=== PATIENT | female | born 1985 | race Two or more races ===

== ENCOUNTER 2020-01-08 13:04 | Observation (INO) ==
[2020-01-08 13:28] VITALS: BMI 33.5
[2020-01-08 13:41] LABS: BILIRUBIN,URINE NEGATIVE (NEGATIVE); BLOOD/HEMOGLOBIN,URINE 5+ (NEGATIVE); GLUCOSE, URINE NEGATIVE (NEGATIVE); KETONES,URINE NEGATIVE (NEGATIVE); LEUKOCYTE ESTERASE ,URINE 1+ (NEGATIVE); NITRITES,URINE NEGATIVE (NEGATIVE); PROTEIN,URINE 2+ (NEGATIVE); UROBILINOGEN,URINE NORMAL (NORMAL)
--- NOTE | 2020-01-08 13:47 | DR.PREG ---
HPI Time seen Time Seen by Provider: 01/08/20 13:43 PCP Primary Care Physician: FRANK HPI Comment HPI Comment: PATIENT IS 34YR OLD FEMALE HERE IN ER WITH LOWER ABDOMINAL PAIN AND VAGINAL BLEEDIGING. SHE IS G 4 P 1 A 2. SHE IS 15 WEEKS . PAIN IS C RAMPING WITH 6/10 PAIN RADIATING TO THE LOWER BACK. PAIN ASSOCIATED WITH VAGINAL BLEEDIG. PATIENT SAW DR. MARIE YESTERDAY PRESCRIBE MEDICATIOS FOR UTI. PAIN IS GETTING WORSE. MOVEMENT WORSEN PAIN AND LYING STILL DECREASES PAIN. NO FEVER OR DYSURIA. PAIN IS GETTING WORSE. Chief Complaint Chief Complaint Doctors Comments: LOWER ABDOMINAL PAIN WITH VAGINAL BLEEDING THAT STARTED LAST NIGHT. Chief Complaint:: PATIENT SIGNIFICANT OTHER AT BEDSIDE STATED "SHE STARTED HURTING IN HER LOWER RIGHT STOMACH LASTNIGHT AND HAS BEEN HAVING A LITTLE BIT OF BLEEDING AND IS STILL HURTING AND STILL A LITTLE BIT OF BLEEDING." COVID-19 Coronavirus risk:travel/contact w/high risk person: No Has patient experienced Coronavirus symptoms: No Nurses Notes Reviewed Nurses Notes Review: Yes Source History Provided: Patient and Significant Other Mode of Arrival Mode of Arrival: In Arms Timing Onset of Chief Complaint: 01/07/20 PMH PMH Past Medical History: No Past Surgical History: No Family History History of Family Medical Conditions: No Social History Alcohol Use: None Do you use any recreational Drugs:: No Travel Risk Coronavirus risk:travel/contact w/high risk person: No Has patient experienced Coronavirus symptoms: No Infectious screening Have you traveled outside the country in the last 6 months?: No Isolation: Standard ROS Review of Systems Constitutional: No Symptoms Reported and See HPI; negative Fever, Weakness and Fatigue Eyes: No Symptoms Reported and See HPI; negative Blurred Vision and Diplopia ENTM: No Symptoms Reported and See HPI; negative Ear Pain, Nose Discharge, Nose Congestion and Throat Pain Respiratoy: No Symptoms Reported and See HPI; negative Moist Cough, Short of Breath and Wheezing Cardiovascular: No Symptoms Reported; negative See HPI, Chest Pain, Edema and Palpitations Gastrointestinal/Abdominal: No Symptoms Reported, See HPI and Abdominal Pain; negative Constipation, Diarrhea, Nausea and Vomiting Genitourinary: No Symptoms Reported and See HPI; negative Dysuria, Frequency and Hematuria Neurological: No Symptoms Reported and See HPI; negative Headache, Weakness and Dizziness Musculoskeletal: No Symptoms Reported, See HPI and Back Pain; negative Muscle Pain Integumentary: No Symptoms Reported, See HPI, Change in Color and Wound; negative Change in Hair/Nails, Rash and Juandice Hematologic/Lymphatic: No Symptoms Reported and See HPI; negative Easy Bruising and Swollen Glands Endocrine: No Symptoms Reported and See HPI; negative Increased Thirst and Increased Urine Psychiatric: No Symptoms Reported and See HPI All Other Systems: Reviewed and Negative PE Vital Signs Vitals: Temperature 98.3 F Pulse Rate [Left] 80 Pulse Rate 87 Respiratory Rate 18 Blood Pressure [Left Arm] 120/75 Blood Pressure 120/75 O2 Sat by Pulse Oximetry 96 General Limitations: Language Barrier and Other ( INTERPRETING FOR PATIENT FRON IT[place]IAN.) General Appearance: Alert and In No Apparent Distress Head Head Exam: Normal Inspection and Atraumatic Eyes Eye exam: Normal Appearance and PERRL; negative Scleral Icterus and Conjunctival Injection ENT ENT Exam: Normal Exam, Normal Oropharynx, Normal External Ear Exam and TM's Normal Bilaterally Neck Neck Exam: Normal Inspection and Trachea Midline; negative Tenderness and Lymphadenopathy Chest Chest Inspection: Normal Inspection and Symmetric Chest Wall Rise; negative Tenderness Respiratory Respiratory Exam: Normal Lung Sounds Bilat; negative Accessory Muscle Use, Chest Wall Tenderness and Respiratory Distress Respiratory Exam: Bilateral: Clear to Auscultation Cardiovascular Cardiovascular Exam: Regular Rate, Normal Rhythm and Normal Heart Sounds; negative Systolic Murmur and Diastolic Murmur Abdominal Exam Abdominal Exam: Normal Inspection, Normal Bowel Sounds, Soft and Tenderness Abdominal Tenderness: RLQ, LLQ, Suprapubic and Moderate Blood: None Amniotic fluids: None Nitrazine: Negative Back Back Exam: Normal Inspection; negative (R) CVA Tenderness and (L) CVA Tenderness Extremeties Extremities Exam: Normal Inspection and Normal Capillary Refill; negative Tenderness, Edema and Calf Tenderness Neurologic Neurological Exam: Alert, Oriented X3 and CN II-XII Intact; negative Motor Sensory Deficit Psychiatric Psychiatric Exam: Normal Affect and Normal Mood Skin Skin Exam: Warm, Dry, Intact and Normal Color MDM Additional Information Obtained Additional Information Obtained From: Family Differential Diagnosis Differential Diagnosis: inevitable, threatened, Abruptio placentae, Active labor premature, Pyelonephritis: acute, Urinary tract infection and Vaginal bleeding COURSE Treatment Treatment: SEE ORDERS. NS 1L IV BOLUS. ZOFRAN 4MG IV. PAIN INCREASIN, US REPORT SUGGESTIVE OF MISCARRIAGE. OB NURSE AND OB DR BOTH IN ER WITH PATIENT. CARE TAKEN OVER BY THEIR TEAM. SHE TO TAKEN TO OR/L&D. PATIENT ADMITTED TO HOSPITAL BY OB. Reevaluation 1st: Worsened Consultation Consultation Comments: DISCUSSED PATIENT WITH DR. ALMEIDA. HERE IN ER WITH OB NURSE TO EVALUATE PATIENT WHO APPEARS TO BE HAVING MISCARRIGE. Education/Counseling Education/Counseling: Patient and Family Educated On: Diagnosis ROR Labs Reviewed Laboratory Results Reviewed?: Yes Result Diagrams: 01/09/20 04:14 Laboratory: WBC 12.6 X10^3/uL (3.6-10.0) H 01/08/20 13:54 RBC 4.35 X10^6/uL (3.5-5.4) 01/08/20 13:54 Hgb 12.7 g/dL (12.0-16.0) 01/08/20 13:54 Hct 37.4 % (36.0-47.0) 01/08/20 13:54 MCV 86.1 fL (80.0-100.0) 01/08/20 13:54 MCH 29.2 pg (27.0-34.0) 01/08/20 13:54 MCHC 34.0 g/dL (33.0-35.0) 01/08/20 13:54 RDW 14.4 % (11.6-16.5) 01/08/20 13:54 Plt Count 239 X10^3/uL (150.0-450.0) 01/08/20 13:54 MPV 9.1 fL (7.4-11.0) 01/08/20 13:54 Neut % (Auto) 84.0 % (42.0-75.0) H 01/08/20 13:54 Lymph % (Auto) 9.7 % (21.0-51.0) L 01/08/20 13:54 Taliaferro % (Auto) 5.8 % (0.0-13.0) 01/08/20 13:54 Eos % (Auto) 0.3 % (0.9-2.9) L 01/08/20 13:54 Baso % (Auto) 0.2 % (0.2-1.0) 01/08/20 13:54 Neut # (Auto) 10.6 x10^3/uL (2.2-4.8) H 01/08/20 13:54 Lymph # (Auto) 1.2 X10^3/uL (1.3-2.9) L 01/08/20 13:54 Taliaferro # (Auto) 0.7 x10^3/uL (0.3-0.8) 01/08/20 13:54 Eos # (Auto) 0.0 x10^3/uL (0.0-0.2) 01/08/20 13:54 Baso # (Auto) 0.0 X10^3/uL (0.0-0.1) 01/08/20 13:54 Absolute Nucleated RBC 0.0 /100WBC 01/08/20 13:54 HCG, Quant 23016 mIU/mL (0-6) H 01/08/20 13:54 Specimen Type Clean catch urine 01/08/20 13:34 Urine Color Dark yellow (YELLOW) 01/08/20 13:34 Urine Appearance Clear (CLEAR) 01/08/20 13:34 Urine pH 6.0 (5.0 - 8.0) 01/08/20 13:34 Ur Specific Aston 1.015 (1.000-1.030) 01/08/20 13:34 Urine Protein 2+ (NEGATIVE) 01/08/20 13:34 Urine Glucose (UA) Negative (NEGATIVE) 01/08/20 13:34 Urine Ketones Negative (NEGATIVE) 01/08/20 13:34 Urine Occult Blood 5+ (NEGATIVE) 01/08/20 13:34 Urine Nitrite Negative (NEGATIVE) 01/08/20 13:34 Urine Bilirubin Negative (NEGATIVE) 01/08/20 13:34 Urine Urobilinogen Normal (NORMAL) 01/08/20 13:34 Ur Leukocyte Esterase 1+ (NEGATIVE) 01/08/20 13:34 Urine RBC Tntc /HPF (0-3) A 01/08/20 13:34 Urine WBC 0-2 /HPF (0-5) 01/08/20 13:34 Ur Squamous Epith Cells Few /HPF (NEGATIVE) 01/08/20 13:34 Urine Bacteria Trace /HPF (NEGATIVE) 01/08/20 13:34 Urine Mucus Moderate /HPF (NEGATIVE) 01/08/20 13:34 Ur Culture Indicated? No/not indicated 01/08/20 13:34 Placental [id number] There is a rupture (NO RUPTURE) 01/08/20 18:22 Blood Type O POSITIVE 01/08/20 19:28 Antibody Screen Negative 01/08/20 19:28 XRAY XRAY Interpreted by: Radiologist (REPORT NOTED AND DISCUSSED WITH PATIENT.) Opioid Opioid Risk Tool Age (Galo box if 16-45): Yes Total: 1 Total Score Risk Category: Low Risk Copyright: Matthew LICONA predicting aberrant behaviors Diagnosis Discharge Problem: Complete miscarriage Abdominal pain Qualifiers: Abdominal location: lower abdomen, unspecified Qualified Code(s): R10.30 - Lower abdominal pain, unspecified Instructions Instructions: Miscarriage Forms: Excuse From Work or School Precautions for COVID19 Patient Portal Social Distancing
[2020-01-08 13:54] LABS: COLOR,URINE DARK YELLOW (YELLOW)
[2020-01-08 13:55] LABS: APPEARANCE,URINE CLEAR (CLEAR); BACTERIA,URINE TRACE /HPF (NEGATIVE); MUCUS,URINE MODERATE /HPF (NEGATIVE); RBC,URINE TNTC /HPF (0-3); SQUAMOUS EPITHELIAL CELL,UR FEW /HPF (NEGATIVE)
[2020-01-08 14:02] LABS: BASOPHILS % (AUTO) 0.2 % (0.2-1.0); EOSINOPHILS % (AUTO) 0.3 % (0.9-2.9); HEMATOCRIT 37.4 % (36.0-47.0); HEMOGLOBIN 12.7 g/dL (12.0-16.0); LYMPHOCYTES # (AUTO) 1.2 X10^3/uL (1.3-2.9); LYMPHOCYTES % (AUTO) 9.7 % (21.0-51.0); MEAN CORPUSCULAR HEMOGLOBIN 29.2 pg (27.0-34.0); MEAN CORPUSCULAR VOLUME 86.1 fL (80.0-100.0); MEAN PLATELET VOLUME 9.1 fL (7.4-11.0); MONOCYTES # (AUTO) 0.7 x10^3/uL (0.3-0.8); MONOCYTES % (AUTO) 5.8 % (0.0-13.0); NEUTROPHILS # (AUTO) 10.6 x10^3/uL (2.2-4.8); PLATELET COUNT 239 X10^3/uL (150.0-450.0); RED BLOOD COUNT 4.35 X10^6/uL (3.5-5.4); RED CELL DISTRIBUTION WIDTH 14.4 % (11.6-16.5); WHITE BLOOD COUNT 12.6 X10^3/uL (3.6-10.0)
[2020-01-08] MEDS ORDERED: ZOFRAN INJ 4 MG VIAL IVP ONE (14:07)
[2020-01-08] MEDS ORDERED: NS 1000 ML 1,000 ML IV ONE (14:07)
[2020-01-08] MEDS ORDERED: XYLOCAINE 2 % (PLAIN) ONE (14:11)
[2020-01-08] MEDS ORDERED: QUELICIN (OR ANECTINE) ONE (14:11)
[2020-01-08] MEDS ORDERED: DIPRIVAN VIAL ONE (14:11)
[2020-01-08] MEDS ORDERED: PITOCIN ONE ×2 (14:11→18:44)
[2020-01-08] MEDS ORDERED: ULTANE GAS IN ONE (14:11)
[2020-01-08] MEDS ORDERED: REGLAN INJ 10 MG VIAL ONE (14:11)
[2020-01-08] MEDS ORDERED: LTA KIT LIDOCAINE 4% ONE (14:11)
[2020-01-08] MEDS ORDERED: NS 1000 ML 1,000 ML ONE ×2 (14:11→18:47)
[2020-01-08] MEDS ORDERED: ZOFRAN INJ 4 MG VIAL ONE ×2 (14:11)
[2020-01-08] MEDS ORDERED: VERSED ONE (14:11)
--- NOTE | 2020-01-08 16:35 | US ---
HISTORYOB C/O VAGINAL BLEEDING AND SEVERE RLQ PAINSTUDYOB LESS THAN 14 WEEKSCOMPARISONNoneTECHNIQUEMultiple trent scale and color flow Doppler images of the pelvis were obtained with focused evaluation of the fetus. Study was performed scanning trans abdominally.FINDINGSA viable single intrauterine is identified with heart tones of 133 beats per minute. A breech presentation is observed with a anterior placenta. Normal amniotic fluid volume is observed. The left ovary is normal measuring 2.9 by 2.5 x 2.3 cm for a left ovarian volume of 9 cubic cm. Normal vascular flow to the left ovary is observed. The right ovary is also normal 1.7 by 2.4 x 1.3 cm normal vascular flow to the right ovary is observed. For a right ovarian volume of 2.9 cubic cm.Finally nor elongation of the cervix is noted thus endocervical canal appears to be open.The BPD is 27.4 mm corresponding to and estimated gestational age of 14 weeks 6 days.The HC is 104.9 mm corresponding to and estimated gestational age of 15 weeks 0 days.The AC is 91 mm corresponding to and estimated gestational age of 15 weeks 2 days.The FL is 15.8 mm corresponding to and estimated gestational age of 14 weeks 5 daysThe weight is of L1 111 grams or 0.24 pounds.Head circumference to abdominal circumference ratio is 1.15 femur length to abdominal circumference ratio is 17.4.IMPRESSIONA viable single intrauterine with an average ultrasound age of 15 weeks 0 days correspond to an estimated date of delivery of 07/01/2020..There is funneling of the cervix with the endocervical canal open superiorly. Incompetent cervix could not be excluded.Electronically signed by: LESTER LEÓN (January 08, 2020 16:33:48)
[2020-01-08] MEDS ORDERED: D5 1/2 NS 1L W PITOCIN 20 UNITS/L 20 UNITS/1,000 ML BAG IV ONE ×2 (18:44→19:48)
[2020-01-08 18:51] LABS: AMNISURE ROM TEST THERE IS A RUPTURE (NO RUPTURE)
[2020-01-08] MEDS ORDERED: DILAUDID INJ ONE (19:04)
[2020-01-08] MEDS ORDERED: DILAUDID INJ IVP ONE (19:04)
[2020-01-08] MEDS ORDERED: FENTANYL INJ 100 mcg ONE (19:43)
[2020-01-08] MEDS ORDERED: ANCEF 1 GRAM IV PREMIX* 1 G/50 ML BAG IV ONE (19:50)
[2020-01-08] MEDS ORDERED: REGLAN INJ 10 MG VIAL IVP PRN (21:03)
[2020-01-08] MEDS ORDERED: BENADRYL INJ 50 MG VIAL IVP PRN (21:03)
[2020-01-08] MEDS ORDERED: DILAUDID INJ IVP PRN (21:03)
[2020-01-08] MEDS ORDERED: ZOFRAN INJ 4 MG VIAL IVP PRN (21:03)
[2020-01-08] MEDS ORDERED: PHENERGAN INJ 25 MG IM PRN ×2 (21:03→21:27)
[2020-01-08] MEDS ORDERED: MOTRIN TAB 800 MG PO PRN ×2 (21:27)
[2020-01-08] MEDS ORDERED: AMBIEN PO PRN (21:27)
[2020-01-08] MEDS ORDERED: DERMOPLAST PAIN RELIEF SPRAY TOP PRN (21:27)
[2020-01-08] MEDS ORDERED: MILK OF MAGNESIA PO PRN (21:27)
[2020-01-08] MEDS ORDERED: ADACEL or BOOSTRIX TDaP VACCINE IM ONE (21:27)
[2020-01-08] MEDS: D5 1/2 NS 1000 ML 1,000 ML with PITOCIN 20 UNITS IV SCH ×2 (22:37)
[2020-01-08] MEDS: PERCOCET TAB 5/325 MG PO PRN (22:41)
[2020-01-09] MEDS: PERCOCET TAB 5/325 MG PO PRN (03:54)
[2020-01-09 05:12] LABS: HEMATOCRIT 28.5 % (36.0-47.0); HEMOGLOBIN 9.7 g/dL (12.0-16.0)
[2020-01-09] MEDS: D5 1/2 NS 1000 ML 1,000 ML with PITOCIN 20 UNITS IV SCH ×2 (06:08)
[2020-01-09 08:22] VITALS: BP 104/63
[2020-01-09] MEDS ORDERED: PRENATAL PLUS PO SCH (09:00)
== END 2020-01-09 11:17 | disposition home or self-care (01) ==
LOC: ER 13:04 → LD 13:04 → UNDODISOB 19:40 → LD 20:05 → MED/SURG 21:15
PROVIDERS: ADMIT Specialist; ATTEND Specialist
DX: Z3A.14 14 weeks gestation of pregnancy; O03.4 Incomplete spontaneous abortion without complication; Z23 Encounter for immunization; D50.8 Other iron deficiency anemias; O46.8X2 Other antepartum hemorrhage, second trimester
CPT/HCPCS: 36415; 76801; 81001; 84112; 84702; 85014; 85018; 85025; 86850; 86900; 86901; 90715; 96365; 96367; 96374; 96375; 99285; A4222; G0378; J0330; J0690; J1170; J2250; J2405; J2590; J2704; J2765; J3010; J7030; S0197; S5010